=== PATIENT | female | born 1990 | race Caucasian/White ===

== ENCOUNTER 2021-05-18 20:48 | Emergency (ER) | payer BC ==
[~2021-05-18] VITALS: Ht 162.6 cm; Wt 103.2 kg
[2021-05-18 20:57] VITALS: TEMP 98.3
[2021-05-18] MEDS ORDERED: PRENATAL TABLET PO (21:03)
[2021-05-18] MEDS ORDERED: PRIL40 PO (21:03)
[2021-05-18] MEDS ORDERED: ASPIRIN 81M81 MG/TA2 PO (21:03)
[2021-05-18] MEDS ORDERED: OMNICEF 300MG300 MG PO ×3 (21:29→21:51)
[2021-05-18 21:54] VITALS: BP 110/79; PULSE 90
== END 2021-05-18 21:54 | disposition home or self-care (01) ==
LOC: COL.ER 20:48
DX: H66.92 Otitis media, unspecified, left ear (principal)